=== PATIENT | male | born 1975 | race Asian ===

== ENCOUNTER 2016-10-06 15:05 | Emergency (ER) | payer SELFPAY ==
[~2016-10-06] VITALS: Ht 182.9 cm; Wt 110.3 kg
[~2016-10-06 15:05] MED LIST: ALLO300T PO; INDO50CA PO
[2016-10-06 15:07] VITALS: BP 138/82
[2016-10-06] MEDS ORDERED: KETOROLAC 30 MG/1 ML IM ONE (15:30)
[2016-10-06] MEDS ORDERED: OXYcodone/APAP 5/325MG TABLET PO ONE (15:30)
[2016-10-06] MEDS ORDERED: KETOROLAC 30 MG/1 ML ONE (15:32)
[2016-10-06] MEDS ORDERED: OXYcodone/APAP 5/325MG TABLET ONE (15:32)
== END 2016-10-06 15:52 | disposition home or self-care (01) ==
LOC: ED 15:40
DX: M10.041 Idiopathic gout, right hand (principal); E86.0 Dehydration
CPT/HCPCS: 96372; 99283; J1885

== ENCOUNTER 2016-11-09 17:39 | Emergency (ER) | payer SELFPAY ==
[~2016-11-09] VITALS: Ht 180.3 cm; Wt 113.1 kg
[2016-11-09 17:41] VITALS: BP 136/92
[2016-11-09] MEDS ORDERED: KETOROLAC 30 MG/1 ML IM ONE (18:00)
[2016-11-09] MEDS ORDERED: KETOROLAC 30 MG/1 ML ONE (18:00)
== END 2016-11-09 18:39 | disposition home or self-care (01) ==
LOC: ED 18:33
DX: B34.9 Viral infection, unspecified (principal); J00 Acute nasopharyngitis [common cold]
CPT/HCPCS: 71020; 96372; 99284; J1885

== ENCOUNTER 2017-08-23 17:09 | Emergency (ER) | payer OTHER ==
[~2017-08-23] VITALS: Ht 180.3 cm; Wt 112.0 kg
[2017-08-23 17:17] VITALS: BP 108/76
[2017-08-23 18:11] LABS: BASOPHILS # (AUTO) 0.02 x10^3/uL (0-0.1); BASOPHILS % (AUTO) 0 % (0-1); EOSINOPHILS # (AUTO) 0.15 x10^3/uL (0-0.4); EOSINOPHILS % (AUTO) 2 % (1-7); LYMPHOCYTES % (AUTO) 25 % (22-44); MD NO; MEAN CORPUSCULAR HEMOGLOBIN 29.8 pg (27.5-34.5); MEAN CORPUSCULAR HGB CONC 33.8 g/dL (33.2-36.2); MEAN CORPUSCULAR VOLUME 88.1 fL (81-97); MEAN PLATELET VOLUME 7.8 fL (7.4-10.4); MONOCYTES # (AUTO) 0.42 x10^3/uL (0.2-0.8); MONOCYTES % (AUTO) 5 % (2-9); NEUTROPHILS # (AUTO) 5.59 x10^3/uL (1.8-6.8); NEUTROPHILS % (AUTO) 68 % (42-75); PLATELET COUNT 332 x10^3/uL (130-400); RED BLOOD COUNT 4.74 x10^6/uL (4.38-5.82); RED CELL DISTRIBUTION WIDTH 13.3 % (9.4-14.8)
[2017-08-23 18:37] LABS: ALANINE AMINOTRANSFERASE 73 U/L (12-78); ALBUMIN 3.9 g/dL (3.4-5.0); ANION GAP 10 mmol/L (5-15); CALCIUM 9.2 mg/dL (8.5-10.1); CHLORIDE 107 mmol/L (98-107)
[2017-08-23 18:39] LABS: ALKALINE PHOSPHATASE 124 U/L (45-117); BILIRUBIN,TOTAL 0.7 mg/dL (0.2-1.0); TOTAL PROTEIN 8.7 g/dL (6.4-8.2)
[2017-08-23] MEDS ORDERED: OXYcodone/APAP 5/325MG TABLET ONE (19:17)
[2017-08-23] MEDS ORDERED: KETOROLAC 30 MG/1 ML ONE (19:17)
[2017-08-23] MEDS ORDERED: KETOROLAC 30 MG/1 ML IM ONE (19:30)
[2017-08-23] MEDS ORDERED: OXYcodone/APAP 5/325MG TABLET PO PRN (19:30)
== END 2017-08-23 19:28 ==
LOC: ED 19:00
DX: M13.842 Other specified arthritis, left hand (principal); M13.872 Other specified arthritis, left ankle and foot; M13.0 Polyarthritis, unspecified; M10.9 Gout, unspecified
CPT/HCPCS: 36415; 73130; 73630; 80053; 84550; 85025; 96372; 99285; J1885

== ENCOUNTER 2018-03-22 01:16 | Emergency (ER) | payer SELFPAY ==
[~2018-03-22] VITALS: Ht 180.3 cm; Wt 105.6 kg
[~2018-03-22 01:16] MED LIST changes: -INDO50CA PO; +INDO50CA5 PO
[2018-03-22] MEDS ORDERED: KETOROLAC 30 MG/1 ML ONE (02:17)
[2018-03-22] MEDS ORDERED: OXYcodone/APAP 5/325MG TABLET ONE (02:18)
[2018-03-22] MEDS ORDERED: HYDROcodone/APAP 5/325 TABLET PO STA (02:20)
[2018-03-22 02:24] VITALS: BP 148/82
[2018-03-22] MEDS ORDERED: KETOROLAC 60 MG/2 ML IM ONE (02:30)
[2018-03-22] MEDS ORDERED: OXYcodone/APAP 5/325MG TABLET PO ONE (02:30)
== END 2018-03-22 02:38 | disposition home or self-care (01) ==
LOC: ED 02:30
DX: S39.012A Strain of muscle, fascia and tendon of lower back, initial encounter (principal); M13.131 Monoarthritis, not elsewhere classified, right wrist; M10.9 Gout, unspecified; X50.0XXA Overexertion from strenuous movement or load, initial encounter; Y93.89 Activity, other specified; Y92.69 Other specified industrial and construction area as the place of occurrence of the external cause; Y99.8 Other external cause status
CPT/HCPCS: 96372; 99283; J1885

== ENCOUNTER 2018-05-30 13:45 | Emergency (ER) | payer BC, OTHER ==
[~2018-05-30] VITALS: Ht 180.3 cm; Wt 101.7 kg
[2018-05-30 13:54] VITALS: BP 140/81
[2018-05-30] MEDS ORDERED: KETOROLAC 30 MG/1 ML ONE (14:22)
--- NOTE | 2018-05-30 14:28 | NUR ---
PT HERE FOR ANKLE FLARE UP SECONDARY TO GOUT.
[2018-05-30] MEDS ORDERED: KETOROLAC 30 MG/1 ML IM ONE (14:30)
== END 2018-05-30 14:40 | disposition home or self-care (01) ==
LOC: ED 14:00
DX: M10.071 Idiopathic gout, right ankle and foot (principal)
CPT/HCPCS: 96372; 99283; J1885

== ENCOUNTER 2018-09-07 14:12 | Emergency (ER) | payer BC ==
[~2018-09-07] VITALS: Ht 180.3 cm; Wt 106.0 kg
[2018-09-07 14:16] VITALS: BP 127/82
[2018-09-07] MEDS ORDERED: HYDROcodone/APAP 5/325 TABLET PO ONE (15:00)
[2018-09-07] MEDS ORDERED: KETOROLAC 30 MG/1 ML IM ONE (15:00)
[2018-09-07] MEDS ORDERED: HYDROcodone/APAP 5/325 TABLET ONE ×2 (15:01→15:04)
[2018-09-07] MEDS ORDERED: KETOROLAC 30 MG/1 ML ONE (15:01)
--- NOTE | 2018-09-07 15:09 | NUR ---
MEDICATED FOR KNUCKLE SWELLING BILATERAL HANDS THAT PT ATTRIBUTES TO GOUT
--- NOTE | 2018-09-07 15:38 | NUR ---
SOME IMPROVEMENT WITH PAIN SINCE MEDICATED. PROVIDED SCRIP AND REFERREL TO ORTHO WITH DISCHARGE INSTRUCTIONS. PT AMBULATED TO D/C DESK, STEADY GAIT
== END 2018-09-07 15:41 | disposition home or self-care (01) ==
LOC: ED 14:26
DX: M10.9 Gout, unspecified (principal); M19.042 Primary osteoarthritis, left hand; M19.041 Primary osteoarthritis, right hand; M19.071 Primary osteoarthritis, right ankle and foot
CPT/HCPCS: 96372; 99283; J1885

== ENCOUNTER 2019-02-16 14:51 | Emergency (ER) | payer BC ==
[~2019-02-16] VITALS: Ht 180.3 cm; Wt 116.9 kg
[~2019-02-16 14:51] MED LIST changes: +INDO50CA15 PO; -INDO50CA5 PO
[2019-02-16 15:37] VITALS: BP 114/84
[2019-02-16] MEDS ORDERED: KETOROLAC 30 MG/1 ML ONE (18:10)
[2019-02-16] MEDS ORDERED: KETOROLAC 30 MG/1 ML IM ONE (18:30)
--- NOTE | 2019-02-16 18:44 | NUR ---
PT REPORTS IMPROVEMENT IN PAIN WITH MEDICATIONS. DC EDUCATION PROVIDED, PT DEMONSTRATES UNDERSTANDING. PT AMBULATED STEADILY TO DC WITH RN AND FAMILY Addendum: 02/16/19 at 1845 by [facility] TO TRANSPORT PT HOME.
== END 2019-02-16 18:46 | disposition home or self-care (01) ==
LOC: ED 18:40
DX: M10.042 Idiopathic gout, left hand (principal); M10.041 Idiopathic gout, right hand; M10.072 Idiopathic gout, left ankle and foot; M10.071 Idiopathic gout, right ankle and foot
CPT/HCPCS: 96372; 99283; J1885

== ENCOUNTER 2019-04-07 21:09 | Emergency (ER) | payer BC ==
[~2019-04-07] VITALS: Ht 180.3 cm; Wt 119.0 kg
[2019-04-07 21:17] VITALS: BP 138/84
[2019-04-07] MEDS ORDERED: KETOROLAC 30 MG/1 ML ONE (21:26)
[2019-04-07] MEDS ORDERED: HYDROcodone/APAP 5/325 TABLET ONE (21:26)
[2019-04-07] MEDS ORDERED: HYDROcodone/APAP 5/325 TABLET PO ONE (21:30)
[2019-04-07] MEDS ORDERED: KETOROLAC 30 MG/1 ML IM ONE (21:30)
--- NOTE | 2019-04-07 22:00 | NUR ---
TASK RN: PT REPORTS IMPROVEMENT IN PAIN WITH MEDICATIONS
== END 2019-04-07 22:53 | disposition home or self-care (01) ==
LOC: ED 22:27
DX: M1A.0610 Idiopathic chronic gout, right knee, without tophus (tophi) (principal)
CPT/HCPCS: 96372; 99283; J1885; J7512

== ENCOUNTER 2019-05-02 19:31 | Emergency (ER) | payer BC ==
[~2019-05-02] VITALS: Ht 180.3 cm; Wt 118.0 kg
[2019-05-02 19:42] VITALS: BP 134/84
[2019-05-02] MEDS ORDERED: KETOROLAC 30 MG/1 ML ONE (19:59)
[2019-05-02] MEDS ORDERED: KETOROLAC 30 MG/1 ML IM ONE (20:00)
--- NOTE | 2019-05-02 20:01 | NUR ---
PT STAES LEFT HAND IS "PAINFUL, MY GOUT IS FLARING UP." HX GOUT.
--- NOTE | 2019-05-02 20:05 | NUR ---
PT MEDICATED PER ORDER.
[2019-05-02 20:25] LABS: BASOPHILS % (AUTO) 0 % (0-1); EOSINOPHILS # (AUTO) 0.02 x10^3/uL (0-0.4); EOSINOPHILS % (AUTO) 0 % (1-7); LYMPHOCYTES # (AUTO) 1.51 x10^3/uL (1-3.4); LYMPHOCYTES % (AUTO) 17 % (22-44); MD NO; MEAN CORPUSCULAR HEMOGLOBIN 29.8 pg (27.5-34.5); MEAN CORPUSCULAR HGB CONC 33.3 g/dL (33.2-36.2); MEAN CORPUSCULAR VOLUME 89.4 fL (81-97); MEAN PLATELET VOLUME 7.6 fL (7.4-10.4); MONOCYTES # (AUTO) 0.35 x10^3/uL (0.2-0.8); MONOCYTES % (AUTO) 4 % (2-9); NEUTROPHILS % (AUTO) 79 % (42-75); PLATELET COUNT 286 x10^3/uL (130-400); RED BLOOD COUNT 4.43 x10^6/uL (4.38-5.82); RED CELL DISTRIBUTION WIDTH 15.5 % (9.4-14.8)
[2019-05-02 20:28] LABS: ALBUMIN 3.4 g/dL (3.4-5.0); ANION GAP 7 mmol/L (5-15); CALCIUM 8.5 mg/dL (8.5-10.1); CHLORIDE 109 mmol/L (98-107); CREATININE 1.11 mg/dL (0.7-1.3)
[2019-05-02] MEDS ORDERED: HYDROcodone/APAP 5/325 TABLET PO STA (20:38)
[2019-05-02] MEDS ORDERED: HYDROcodone/APAP 5/325 TABLET ONE (20:38)
--- NOTE | 2019-05-02 20:41 | NUR ---
Patient/Caregiver given discharge instructions and they have confirmed that they understand the instructions. Patient ambulatory with steady gait.
--- NOTE | 2019-05-02 20:41 | NUR ---
PT MEDICATED PER ORDER.
[2019-05-02] MEDS ORDERED: HYDROcodone/APAP 5/325 TABLET PO ONE (21:00)
== END 2019-05-02 20:59 | disposition home or self-care (01) ==
LOC: ED 20:50
DX: M13.0 Polyarthritis, unspecified (principal); M10.9 Gout, unspecified
CPT/HCPCS: 36415; 80048; 82040; 84550; 85025; 96372; 99283; J1885; J7512

== ENCOUNTER 2019-06-12 15:59 | Emergency (ER) | payer BC ==
[~2019-06-12] VITALS: Ht 180.3 cm; Wt 119.8 kg
[2019-06-12 16:02] VITALS: BP 133/80
--- NOTE | 2019-06-12 16:15 | NUR ---
PT HAS GOUT FLAREUP IN RIGHT HAND. PT SEEN AT [facility] A FEW DAYS AGO FOR THE SAME. PT TAKING PREDNISONE TAPER AND HAS BEEN FEELING OFF SINCE. PT HAND SWOLLEN AND DECREASE ROM. CONNECTED TO MONITORING. FAMILY AT BEDSIDE. MD AT BEDSIDE FOR ASSESSMENT.
[2019-06-12] MEDS ORDERED: KETOROLAC 30 MG/1 ML IM ONE (16:30)
[2019-06-12] MEDS ORDERED: KETOROLAC 60 MG/2 ML ONE (16:39)
--- NOTE | 2019-06-12 16:41 | NUR ---
REPORT RECEIVED FROM TERESA ROSEN. [facility]
[2019-06-12 17:08] LABS: BASOPHILS # (AUTO) 0.04 x10^3/uL (0-0.1); BASOPHILS % (AUTO) 1 % (0-1); EOSINOPHILS # (AUTO) 0.07 x10^3/uL (0-0.4); EOSINOPHILS % (AUTO) 1 % (1-7); LYMPHOCYTES # (AUTO) 1.18 x10^3/uL (1-3.4); LYMPHOCYTES % (AUTO) 17 % (22-44); MD NO; MEAN CORPUSCULAR HEMOGLOBIN 29.3 pg (27.5-34.5); MEAN CORPUSCULAR HGB CONC 33.3 g/dL (33.2-36.2); MEAN CORPUSCULAR VOLUME 88.2 fL (81-97); MEAN PLATELET VOLUME 7.4 fL (7.4-10.4); MONOCYTES % (AUTO) 7 % (2-9); NEUTROPHILS # (AUTO) 5.24 x10^3/uL (1.8-6.8); NEUTROPHILS % (AUTO) 75 % (42-75); PLATELET COUNT 284 x10^3/uL (130-400); RED BLOOD COUNT 4.16 x10^6/uL (4.38-5.82); RED CELL DISTRIBUTION WIDTH 15.9 % (9.4-14.8)
[2019-06-12 17:09] LABS: ALBUMIN 3.3 g/dL (3.4-5.0); ANION GAP 5 mmol/L (5-15); CALCIUM 8.8 mg/dL (8.5-10.1); CHLORIDE 109 mmol/L (98-107); CREATININE 1.23 mg/dL (0.7-1.3)
--- NOTE | 2019-06-12 18:03 | NUR ---
TASK RN: Patient/Caregiver given discharge instructions and they have confirmed that they understand the instructions. Patient ambulatory with steady gait. PT LEFT WITH ALL PERSONAL BELONGINGS.
== END 2019-06-12 18:05 | disposition home or self-care (01) ==
LOC: ED 16:37
DX: M19.041 Primary osteoarthritis, right hand (principal)
CPT/HCPCS: 36415; 80048; 82040; 84550; 85025; 96372; 99283; J1885; J7512

== ENCOUNTER 2019-08-01 13:26 | Emergency (ER) | payer BC ==
[~2019-08-01] VITALS: Ht 180.3 cm; Wt 116.0 kg
--- NOTE | 2019-08-01 13:47 | NUR ---
vitals obtained by this tech
--- NOTE | 2019-08-01 14:32 | NUR ---
DEVICE ENGINEER: PT TO ROOM FROM LOBBY
--- NOTE | 2019-08-01 14:43 | NUR ---
AT BEDSIDE FOR EVAL.
[2019-08-01] MEDS ORDERED: OXYcodone/APAP 5/325MG TABLET ONE (14:49)
[2019-08-01] MEDS ORDERED: OXYcodone/APAP 5/325MG TABLET PO ONE (15:00)
[2019-08-01 15:13] VITALS: BP 123/77
--- NOTE | 2019-08-01 15:24 | NUR ---
Patient given discharge instructions and they have confirmed that they understand the instructions. Patient wheeled out in wheelchair.
== END 2019-08-01 15:26 | disposition home or self-care (01) ==
LOC: ED 14:54
DX: M79.672 Pain in left foot (principal); M79.671 Pain in right foot; G89.29 Other chronic pain; M10.9 Gout, unspecified
CPT/HCPCS: 99283